=== PATIENT | male | born 1990 | race African-American/Black ===

== ENCOUNTER 2017-08-27 01:06 | Emergency (ER) | payer OTHER ==
[~2017-08-27] VITALS: Ht 185.4 cm; Wt 89.2 kg
[~2017-08-27 01:06] MED LIST: DOXY100T PO; LORTA5 PO; SULF-154 PO
[2017-08-27 01:09] VITALS: BP 139/75; PULSE 73; RESP 12; TEMP 98.6; O2SAT 98
[2017-08-27] MEDS ORDERED: KETOROLAC TROMETHAMINE 60 MG/2 ML (IM) VIAL IM ONE (01:30)
--- NOTE | 2017-08-27 01:42 | RADRPT ---
EXAM DATE/TIME: 08/27/2017 01:27 [facility] COMPARISON: No previous studies available for comparison. INDICATIONS : Right shoulder pain. MEDICAL HISTORY : None. SURGICAL HISTORY : None. ENCOUNTER: Initial ACUITY: 1 day PAIN SCORE: 8/10 LOCATION: Right shoulder. FINDINGS: Multiple view examination of the right shoulder demonstrates no evidence of fracture or dislocation. The glenohumeral and acromioclavicular joints are maintained. There is normal range of motion betwe en internal and external rotation. Bony mineralization is normal. CONCLUSION: Unremarkable examination of the right shoulder. Oumar Lopez MD on August 27, 2017 at 1:40 Board Certified Radiologist. This report was verified electronically.
[2017-08-27] MEDS ORDERED: IBUP-1129 PO (01:50)
--- NOTE | 2017-08-27 01:50 | PD ---
HPI Chief Complaint: Musculoskeletal Complaint Time Seen by Provider: 01:27 Travel History International Travel<30 days: No Contact w/Intl Traveler<30days: No Traveled to known affect area: No History of Present Illness HPI 26-year-old male patient presents to the ER today with right shoulder pains that started suddenly after sneezing. He states this evening happened to him about 5 days ago and it stopped on its own. He states that he thinks it may have gone and on its own and thinks it may be was shoulder dislocation. He denies any other issues or injuries. He has never been diagnosed with shoulder dislocation a past. Modifying Factors: Pain worsens with movements Associated Signs & Symptoms: Right shoulder injury Risk Factors: None PFSH Past Medical History Medical History: Denies Significant Hx Tetanus Vaccination: < 5 Years Influenza Vaccination: Yes Past Surgical History Surgical History: No Previous Surgery Social History Alcohol Use: Yes ("OCCASIONALLY") Tobacco Use: No (QUIT AGE 23) Substance Use: No Allergies-Medications (Allergen,Severity, Reaction): Coded Allergies: *MDRO Multi-Drug Resistant Organism (Unverified Adverse Reaction, Unknown , 08/27/17) MRSA Reported Meds & Prescriptions Reported Meds & Active Scripts Active No Active Prescriptions or Reported Medications Review of Systems Except as stated in HPI: all other systems reviewed are Neg Physical Exam Narrative GENERAL: Well-nourished, well-developed young -[place] male patient in mild distress. Awake and oriented 3.. SKIN: Focused skin assessment warm/dry. HEAD: Normocephalic. EYES: No scleral icterus. No injection or drainage. NECK: Supple, trachea midline. No JVD or lymphadenopathy. CARDIOVASCULAR: Regular rate and rhythm without murmurs, gallops, or rubs. RESPIRATORY: Breath sounds equal bilaterally. No accessory muscle use. GASTROINTESTINAL: Abdomen soft, non-tender, nondistended. Right shoulder: Tender to palpation of the posterior part of the shoulder, but there is no loss of shoulder contour and patient is able to flex and extend shoulder albeit with pain on overhead movement of the shoulder. No obvious deformities palpated. MUSCULOSKELETAL: No cyanosis, or edema. BACK: Nontender without obvious deformity. No CVA tenderness. Data Data Last Documented VS Vital Signs Date Time Temp Pulse Resp B/P (MAP) Pulse Ox O2 Delivery O2 Flow Rate FiO2 08/27/17 01:09 98.6 73 12 139/75 (96) 98 Orders Orders Shoulder, Complete (>2vws) (08/27/17 01:23) Ketorolac Inj (Toradol Inj) (08/27/17 01:30) MDM Medical Decision Making Medical Screen Exam Complete: Yes Emergency Medical Condition: Yes Medical Record Reviewed: Yes Differential Diagnosis Strain versus dislocation versus fractures Narrative Course X-ray did not show any signs of acute fractures or dislocations. At this point , I suspect that he may have an underlying shoulder strain. Patient had been given Toradol in the ER. My plan would be to release him with symptomatic relief or pain and shoulder sling. Follow-up with primary care doctor and orthopedics doctor. Rest shoulder for the next week. Return for worsening in symptoms as needed. The plan has discussed with him and he states understanding. Diagnosis Primary Impression: Right shoulder strain Med/Other Pt SpecificInfo: Prescription(s) given Scripts Ibuprofen (Motrin Ib) 200 Mg Tablet 600 MG PO QID Y for PAIN SCALE 1 TO 10, #21 Prov: Jessi Monae MD 08/27/17 Disposition: 01 DISCHARGE HOME Condition: Stable Jessi Monae MD Aug 27, 2017 01:50
== END 2017-08-27 02:14 | disposition home or self-care (01) ==
LOC: PHED 01:06
DX: M25.511 Pain in right shoulder (principal)
CPT/HCPCS: 73030; 96372; 99284; J1885